=== PATIENT | female | born 1960 | race Caucasian/White ===

== ENCOUNTER → 2016-08-16 | Outpatient (CLI) | payer OTHER ==
--- NOTE | 2016-08-16 17:29 | REPMRS ---
Patient History The patient states she had a clinical breast exam in May 2016..No known family history of cancer. Reductions of both breasts, 2014. Took hormonal contraceptives for 5 years. Bilateral breast reduction 2014. Right nipple never healed and fell off. Digital Mammo Screening Bilat: August 16, 2016 - Exam #: [id number] Bilateral CC and MLO view(s) were taken. Technologist: Akua Mckenna, Technologist Prior study comparison: January 07, 2015, bilateral digital mammo screening bilat performed at [facility]. January 02, 2014, bilateral bilat screen digital mammo, performed at [facility] ([facility] December 28, 2012, bilateral bilat screen digital mammo, performed at [facility] ([facility] FINDINGS: The breast tissue is almost entirely fat. There has been no change in the appearance of the mammogram from the prior studies. There are areas of postoperative fat necrosis in the right breast; upper outer quadrant and inferior and medial quadrant. Small subareolar areas of fat necrosis are seen bilaterally as well. The patient is status post bilateral breast reduction surgery in the interval since the last mammography. There is no interval development of dominant mass, architectural distortion, or clustered microcalcification typical of malignancy. ASSESSMENT: BI-RADS/ACR category 1 mammogram. Negative. Recommendation Routine screening mammogram of both breasts in 1 year (for women over age 40). This mammogram was interpreted with the aid of an FDA-approved computer-aided dectection system. Electronically Signed By: Gustabo Be MD 08/16/16 [id number]
== END ==
LOC: M RAD 16:44
PROVIDERS: ATTEND Obstetrics & Gynecology
DX: Z12.31 Encounter for screening mammogram for malignant neoplasm of breast (principal)

== ENCOUNTER → 2017-06-12 | Outpatient (REF) | payer OTHER ==
[2017-06-12 14:19] LABS: PERCENT SATURATION 19.6 % (13.2-45.0)
== END ==
LOC: M LAB REF 13:00
PROVIDERS: ATTEND Internal Medicine
DX: E83.119 Hemochromatosis, unspecified (principal)

== ENCOUNTER → 2017-08-21 | Outpatient (CLI) | payer OTHER | LOC: M RAD 15:56 | DX: Z12.31 Encounter for screening mammogram for malignant neoplasm of breast (principal); Z92.0 Personal history of contraception | CPT/HCPCS: 77067 ==

== ENCOUNTER → 2018-08-22 | Outpatient (CLI) | payer OTHER ==
--- NOTE | 2018-08-22 12:04 | REPMRS ---
Patient History The patient states she had a clinical breast exam in May 2018. No known family history of cancer. Reductions of both breasts, 2015. Took hormonal contraceptives for 5 years. Digital Mammo Screening Bilat: August 22, 2018 - Exam #: [id number] Bilateral CC and MLO view(s) were taken. Technologist: Lorraine Rivera Technologist Prior study comparison: August 21, 2017, bilateral digital mammo screening bilat performed at [facility]. August 16, 2016, bilateral digital mammo screening bilat performed at [facility]. January 07, 2015, bilateral digital mammo screening bilat performed at [facility]. FINDINGS: There are scattered fibroglandular densities. There are scattered areas of fat necrosis bilaterally. On the right these are associated with benign calcifications. There has been no change in the appearance of the mammogram from the prior studies. There is a mild amount of scattered fibroglandular density which is fairly symmetric. There is no interval development of dominant mass, architectural distortion, or clustered microcalcification suggestive of malignancy. 3-D tomosynthesis shows no additional findings. Assessment: BI-RADS/ACR category 2 mammogram. Benign Findings. Recommendation Routine screening mammogram of both breasts in 1 year (for women over age 40). This patient's Lifetime Breast Cancer RIsk is estimated at 8.2 %. This mammogram was interpreted with the aid of an FDA-approved computer-aided dectection system. Electronically Signed By: Gustabo Be MD 08/22/18 [id number]
== END ==
LOC: M RAD 09:45
PROVIDERS: ATTEND Obstetrics & Gynecology
DX: Z12.31 Encounter for screening mammogram for malignant neoplasm of breast (principal); R92.8 Other abnormal and inconclusive findings on diagnostic imaging of breast

== ENCOUNTER → 2019-02-21 | Outpatient (REF) | payer OTHER ==
[2019-02-21 15:00] LABS: APPEARANCE, URINE CLEAR (CLEAR); BACTERIA, URINE AUTO NEGATIVE (NEGATIVE); BILIRUBIN, URINE AUTO NEGATIVE (NEGATIVE); BLOOD, URINE BLOOD NEGATIVE (NEGATIVE); COLOR, URINE STRAW (YELLOW); GLUCOSE, URINE (UA) AUTO NEGATIVE (NEGATIVE); KETONE, URINE AUTO NEGATIVE (NEGATIVE); LEUKOCYTE ESTERASE, URINE AUTO NEGATIVE (NEGATIVE); MUCUS, URINE SMALL (NEGATIVE); NITRITE, URINE AUTO NEGATIVE (NEGATIVE); PROTEIN, URINE AUTO NEGATIVE (NEGATIVE); RBC, URINE AUTO 1 /HPF (0-3); SPECIFIC GRAVITY URINE AUTO 1.006 (1.002-1.035); SQUAMOUS EPITHELIAL CELL UR AU 1 /HPF (0-6); UROBILINOGEN, URINE AUTO 0.2 mg/dL (0.0-2.0); WBC, URINE AUTO 0 /HPF (0-3)
[2019-02-21 15:05] LABS: INR 0.95; PROTHROMBIN TIME 12.4 SECONDS (11.8-14.0)
[2019-02-21 15:06] LABS: PARTIAL THROMBOPLASTIN TIME 26.7 SECONDS (25.0-38.4)
== END ==
LOC: M LAB REF 12:44
PROVIDERS: ATTEND Internal Medicine
DX: Z01.818 Encounter for other preprocedural examination (principal)

== ENCOUNTER → 2019-08-26 | Outpatient (CLI) | payer OTHER ==
--- NOTE | 2019-08-26 15:51 | REPMRS ---
Patient History The patient states she had a clinical breast exam in June 2019. No known family history of cancer. Reductions of both breasts, 2015. Took hormonal contraceptives for 5 years. Digital Woman Screen Mammo: August 26, 2019 - Exam #: [id number] Bilateral CC and MLO view(s) were taken. Technologist: Lorraine Rivera Technologist Prior study comparison: August 22, 2018, bilateral digital mammo screening bilat, performed at [facility]. August 21, 2017, bilateral digital mammo screening bilat, performed at [facility]. August 16, 2016, bilateral digital mammo screening bilat, performed at [facility]. FINDINGS: There are scattered fibroglandular densities. There are multiple bilateral scattered areas of postoperative fat necrosis in this patient status post reduction mammoplasty. These are unchanged. There has been no change in the appearance of the mammogram from the prior studies. There is a mild amount of scattered fibroglandular density which is fairly symmetric. There is no interval development of dominant mass, architectural distortion, or grouped microcalcification suggestive of malignancy. 3-D tomosynthesis shows no additional findings. Assessment: BI-RADS/ACR category 2 mammogram. Benign Findings. Recommendation Routine screening mammogram of both breasts in 1 year (for women over age 40). This patient's Lifetime Breast Cancer Risk is estimated at 8.0 %. This mammogram was interpreted with the aid of an FDA-approved computer-aided dectection system. Electronically Signed By: Gustabo Be MD 08/26/19 [id number]
== END ==
LOC: M WHC 13:22
PROVIDERS: ATTEND Obstetrics & Gynecology
DX: Z12.31 Encounter for screening mammogram for malignant neoplasm of breast (principal)

== ENCOUNTER → 2020-11-23 | Outpatient (CLI) | payer OTHER ==
--- NOTE | 2020-11-23 14:02 | REPMRS ---
Patient History The patient states she had a clinical breast exam in 06/2020. No known family history of cancer. Reductions of both breasts, 2015. Took hormonal contraceptives for 5 years. Patient states no breast complaints today. Patient has signed MRS History Sheet. Digital Woman Screen Mammo: November 23, 2020 - Exam #: [id number] Bilateral CC and MLO view(s) were taken. Technologist: Nasima Jaimes, [employer] Prior study comparison: August 26, 2019, bilateral digital woman screen mammo performed at [facility]. August 22, 2018, bilateral digital mammo screening bilat, performed at [facility]. FINDINGS: There are scattered fibroglandular densities. Screening. Digital screening (2D) mammography was performed bilaterally in the CC and MLO projections. Additionally, breast tomosynthesis (3D mammography) was performed bilaterally in the CC and MLO projections. Todays exam was compared to the prior exams(s). By history, the patient has no complaints of a palpable breast abnormality or other significant breast complaints. The breasts are unchanged in size and shape. There are no terrell-soft tissue densities or spiculated masses. There is no internal architectural distortion .Once again, stable benign appearing calcifications are seen.. There are no suspicious terrell-calcific clusters. Skin thickening or nipple retraction is not present. IMPRESSION: BI-RADS Category 2- Benign Findings(s). There is no evidence of malignant alteration of the breasts. Followup examination recommended in one year. The Volpara volumetric breast density category is B, there are scattered areas of fibroglandular density. This mammogram was read with the assistance of [facility],an FDA approved computer aided detection system for mammography. The lifetime Tyrer-Cuzick score is 7.8% Negative x-ray reports should not delay surgical consultation if a dominant or clinically suspicious mass is present. Not all breast cancers can be identified by mammography. Therefore, we recommend that you continue to perform regular breast self-examination and physical examination and then promptly contact your physician of any concerns or changes. Adenosis and dense breasts may obscure an underlying neoplasm. Assessment: BI-RADS/ACR category 2 mammogram. Benign Findings. Recommendation Routine screening mammogram of both breasts in 1 year. Electronically Signed By: Edgardo Dumont DO 11/23/20 1132
== END ==
LOC: M WHC 10:39
PROVIDERS: ATTEND Obstetrics & Gynecology
DX: Z12.31 Encounter for screening mammogram for malignant neoplasm of breast (principal); Z92.0 Personal history of contraception; Z87.898 Personal history of other specified conditions

== ENCOUNTER → 2022-07-21 | Outpatient (REF) | payer OTHER | LOC: M LAB REF 12:05 | PROVIDERS: ATTEND Internal Medicine | DX: Z01.89 Encounter for other specified special examinations (principal); Z13.89 Encounter for screening for other disorder ==